=== PATIENT | male | born 1985 | race Two or more races ===

== ENCOUNTER 2023-05-09 23:54 | Inpatient (IN) | payer BC ==
[~2023-05-09] VITALS: Ht 170.2 cm; Wt 169.6 kg
[2023-05-10 01:27] LABS: INR 1.09; PARTIAL THROMBOPLASTIN TIME 32.3 SECONDS (22.0-34.0); PROTHROMBIN TIME 11.4 SECONDS (9.0-11.5)
[2023-05-10 01:32] LABS: ALBUMIN 3.7 gm/dL (3.4-5.0); BILIRUBIN TOTAL 0.32 mg/dL (0.3-1.2); CALCIUM 8.6 mg/dL (8.5-10.1); CREATININE SERUM 1.33 mg/dL (0.70-1.30); GFR 60.84; GLOBULINA 3.9 G/DL (2.4-3.5); POTASSIUM 3.43 mEq/L (3.5-5.1); TOTAL PROTEIN 7.6 gm/dL (6.4-8.2)
[2023-05-10 02:02] LABS: HEMATOCRIT 38.5 % (39.0-48.0); HEMOGLOBIN 12.7 g/dL (13-16.00); MEAN CELL VOLUME 92.5 fL (80.0-100.00); MEAN CORPUSCULAR HEMOGLOBIN 30.5 pg (27.00-32.0); MEAN CORPUSCULAR HGB CONC 32.9 g/dl (32.0-36.0); PLATELET COUNT 171 K/uL (150-450); RED BLOOD COUNT 4.16 M/uL (4.00-6.00); RED CELL DISTRIBUTION WIDTH 15.1 % (11.5-14.5)
[2023-05-10 02:47] LABS: URINE APPEARANCE Clear; URINE BILIRRUBIN Negative (NEGATIVE); URINE BLOOD Small; URINE COLOR Yellow; URINE GLUCOSE Negative (NEGATIVE); URINE LEUKOCYTE Negative; URINE NITRATE Negative; URINE PROTEIN Trace (NEGATIVE)
[2023-05-10 02:50] LABS: URINE EPITHELIAL CELLS 3.3 uL (0.0-38.8); URINE RBC 20.2 uL (0.0-20.8); URINE WBC 3.3 uL (0.0-23.2)
[2023-05-10 03:13] LABS: URINE BACTERIA 2.5 uL (0.0-1933)
[2023-05-13] MEDS ORDERED: ELIQUIS5 MG PO (11:38)
[2023-05-13] MEDS ORDERED: OSEL75CA PO (11:39)
[2023-05-13] MEDS ORDERED: LOPRESSOR25 MG PO (11:39)
== END 2023-05-13 14:23 | disposition home or self-care (01) | DRG 310 ==
LOC: ER 23:55 → SEC-K 05-10 08:46 → MEDJ 05-10 08:46
PROVIDERS: General Practice; ADMIT Internal Medicine; ATTEND Internal Medicine
PROC: B24BZZZ Ultrasonography of Heart with Aorta (ICD-10-PCS; principal; 2023-05-10)
PROC: 4A12X4Z Monitoring of Cardiac Electrical Activity, External Approach (ICD-10-PCS; 2023-05-10)
DX: I48.92 Unspecified atrial flutter (principal); J11.1 Influenza due to unidentified influenza virus with other respiratory manifestations